=== PATIENT | female | born 1980 ===

== ENCOUNTER 2017-08-24 10:22 | Emergency (ER) | payer OTHER ==
[2017-08-24 10:33] VITALS: RESP 18; O2SAT 98
[2017-08-24] MEDS ORDERED: Albuterol-Ipratrop 3 mg / 0.5 (3 ml) UD INH STA (10:52)
--- NOTE | 2017-08-24 10:57 | C.PDOC ---
History Of Present Illness 37 y/o female, whose PMHx includes Asthma, presents to the ED for evaluation of cough, congestion, sore throat which began a few days ago. Patient had an episode of vomiting earlier today. Patient states she last used albuterol this morning. Mother presents with her son, who has similar symptoms and is also a patient in the ED. Patient denies fever, chills. Time Seen by Provider: 08/24/17 10:52 Chief Complaint (Nursing): Abdominal Pain History Per: Patient History/Exam Limitations: no limitations Onset/Duration Of Symptoms: Days Current Symptoms Are (Timing): Still Present Radiation Of Pain To:: None Quality Of Discomfort: "Pain" Associated Symptoms: Vomiting. denies: Fever, Chills Additional History Per: Patient Past Medical History Reviewed: Historical Data, Nursing Documentation, Vital Signs Vital Signs: Last Vital Signs Temp 99 F 08/24/17 12:18 Pulse 62 08/24/17 12:18 Resp 18 08/24/17 10:31 BP 135/82 08/24/17 12:18 Pulse Ox 98 08/24/17 12:22 - Medical History PMH: Asthma, Seizures Surgical History: No Surg Hx Family History: States: Unknown Family Hx - Social History Hx Alcohol Use: No Hx Substance Use: No - Immunization History Hx Tetanus Toxoid Vaccination: No Hx Influenza Vaccination: No Hx Pneumococcal Vaccination: No Review Of Systems Constitutional: Negative for: Fever, Chills ENT: Positive for: Nose Congestion, Throat Pain Respiratory: Positive for: Cough Gastrointestinal: Positive for: Vomiting Physical Exam - Physical Exam Appears: Non-toxic, No Acute Distress Skin: Normal Color, Warm, Dry Head: Atraumatic, Normacephalic Eye(s): bilateral: Normal Inspection Ear(s): Bilateral: Normal Nose: Normal, No Discharge Oral Mucosa: Moist Throat: Erythema, No Exudate Neck: Supple Chest: Symmetrical, No Deformity Cardiovascular: Rhythm Regular, No Murmur Respiratory: Decreased Breath Sounds (bilaterally ), No Rales, No Rhonchi, No Wheezing Gastrointestinal/Abdominal: Soft, No Tenderness, No Guarding, No Rebound Extremity: Normal ROM, Capillary Refill (less than 2 seconds ) Neurological/Psych: Oriented x3, Normal Speech Gait: Steady ED Course And Treatment O2 Sat by Pulse Oximetry: 98 (on RA) Pulse Ox Interpretation: Normal - Other Rad CXR X-Ray: Interpreted by Me, Viewed By Me, Read By Radiologist Interpretation: HISTORY: cough. COMPARISON: 03/26/2016. TECHNIQUE: Chest PA and lateral. FINDINGS: LUNGS: No active pulmonary disease. PLEURA: No significant pleural effusion identified. No pneumothorax apparent. CARDIOVASCULAR: Normal. OSSEOUS STRUCTURES: No significant abnormalities. VISUALIZED UPPER ABDOMEN: Normal. OTHER FINDINGS: None. IMPRESSION: No active disease. Medical Decision Making Medical Decision Making: Impression: 37y/o female with cough, congestion, vomiting, sore throat Plan: * labs * CXR * Albuterol INH * Prednisone PO * reassess and disposition Progress: labs and CXR ordered and reviewed. Patient received Albuterol INH and Prednisone PO. pt reassesed s/p neb. lungs clear. breathing improve.d symptoms improved. cxr neg. advise outpt f/u and return precautions. abd soft no ttp. pt speaking full sentences ambulatory steady gait. Disposition - Disposition Referrals: [facility] [Outside] [facility] [Outside] [facility] [Outside] Disposition: HOME/ ROUTINE Disposition Time: 12:00 Condition: STABLE Additional Instructions: follow up with your doctor. return to er with worsening symptoms or concerns. Prescriptions: Benzonatate [Tessalon Perles] 100 mg PO TID PRN #15 sgl PRN Reason: Cough Prednisone 50 mg PO DAILY #4 tablet Instructions: Asthma (ED), Viral Syndrome (ED) Forms: [employer] (Z[place]an) - Clinical Impression Clinical Impression: Asthma, Viral syndrome - Scribe Statement The provider has reviewed the documentation as recorded by the Scribe (Eve Pires) Provider Attestation: All medical record entries made by the Scribe were at my direction and personally dictated by me. I have reviewed the chart and agree that the record accurately reflects my personal performance of the history, physical exam, medical decision making, and the department course for this patient. I have also personally directed, reviewed, and agree with the discharge instructions and disposition.
[2017-08-24] MEDS ORDERED: Albuterol-Ipratrop 3 mg / 0.5 (3 ml) UD ONE (11:20)
--- NOTE | 2017-08-24 11:59 | RAD ---
HISTORY: cough COMPARISON: 03/26/2016 TECHNIQUE: Chest PA and lateral FINDINGS: LUNGS: No active pulmonary disease. PLEURA: No significant pleural effusion identified. No pneumothorax apparent. CARDIOVASCULAR: Normal. OSSEOUS STRUCTURES: No significant abnormalities. VISUALIZED UPPER ABDOMEN: Normal. OTHER FINDINGS: None. IMPRESSION: No active disease.
[2017-08-24 12:20] VITALS: BP 135/82; PULSE 62; TEMP 99
== END 2017-08-24 12:40 | disposition home or self-care (01) ==
LOC: C.ER 10:22
DX: J45.909 Unspecified asthma, uncomplicated (principal); B34.9 Viral infection, unspecified

== ENCOUNTER 2018-08-11 08:18 | Emergency (ER) | payer OTHER ==
[2018-08-11 08:32] VITALS: BP 101/67; PULSE 60; RESP 18; TEMP 98; O2SAT 99
--- NOTE | 2018-08-11 08:32 | C.PDOC ---
History Of Present Illness GEN HIVES, ITCH THIS MORNING. NO KNOWN CAUSE, SP BENADRYL BY EMS AND AT HOME, NOW IMPROVED. PS INITIALLY HIVES "WERE EVERYWHERE" NOW ONLY ON ARMS. +NAUSEA, NOW RESOLVED. NO SOB, SWELL. DENIES HO ASTHMA. ALSO CO PERSIST R LOWER BACK PAIN X 3 DAYS. RADIATION R BUTTOCK/LAT THIGH. SP EVAL BY PMD FOR SAME, PENDING OUTPT XRAY. ON NORCO EXAM NARD NONTOXIC HEENT NO ANGIOEDEMA STRIDOR LUNGS CTA B/L NO W/R/R SKIN +HIVES B/L UPPER ARMS EXT NO EDEMA BACK AROM WO DIFF NONTEND NEURO INTACT Time Seen by Provider: 08/11/18 08:29 Chief Complaint (Nursing): Allergic Reaction History Per: Patient History/Exam Limitations: no limitations Onset/Duration Of Symptoms: Hrs Current Symptoms Are (Timing): Still Present Past Medical History Reviewed: Historical Data, Nursing Documentation, Vital Signs Vital Signs: Last Vital Signs Temp 98 F 08/11/18 08:22 Pulse 60 08/11/18 08:22 Resp 18 08/11/18 08:22 BP 101/67 08/11/18 08:22 Pulse Ox 99 08/11/18 10:11 - Medical History PMH: Asthma, Seizures Other Surgeries: Hx of surgeries Family History: States: No Known Family Hx - Social History Hx Alcohol Use: No Hx Substance Use: No - Immunization History Hx Tetanus Toxoid Vaccination: No Hx Influenza Vaccination: No Hx Pneumococcal Vaccination: No Review Of Systems Except As Marked, All Systems Reviewed And Found Negative. Constitutional: Negative for: Fever, Chills Respiratory: Negative for: Shortness of Breath Gastrointestinal: Positive for: Nausea Musculoskeletal: Positive for: Back Pain (right lower back pain) Skin: Positive for: Other (hives,itching) Physical Exam - Physical Exam Appears: Non-toxic, Other (NARD) Skin: Normal Color, Warm, Dry, Other (+hives bilateral upper arms) Head: Atraumatic, Normacephalic, Other (no angioedema) Throat: Other (no stridor) Cardiovascular: Rhythm Regular Respiratory: Normal Breath Sounds, No Rales, No Rhonchi, No Wheezing Back: No Vertebral Tenderness, No Paraspinal Tenderness, Other (AROM without difficulty) Extremity: Normal ROM, Other (no edema) Neurological/Psych: Oriented x3, Normal Speech ED Course And Treatment O2 Sat by Pulse Oximetry: 99 (RA) Pulse Ox Interpretation: Normal Medical Decision Making Medical Decision Making: Plan: --Solu-Medrol IV --Toradol IV Disposition Counseled Patient/Family Regarding: Diagnosis, Need For Followup, Rx Given - Disposition Referrals: YOUR,PMD [Other] Disposition: HOME/ ROUTINE Disposition Time: 10:00 Condition: IMPROVED Prescriptions: Ibuprofen [Motrin] 600 mg PO Q6 #30 tab predniSONE [Prednisone] 60 mg PO DAILY #9 tab Instructions: Sciatica (DC), Hives (DC) Forms: [employer] (Malagasy), Work Excuse - Clinical Impression Clinical Impression: Urticaria, Sciatic leg pain - Scribe Statement The provider has reviewed the documentation as recorded by the Maganibe Yogi Espinoza Provider Attestation: All medical record entries made by the Scribe were at my direction and personally dictated by me. I have reviewed the chart and agree that the record accurately reflects my personal performance of the history, physical exam, medical decision making, and the department course for this patient. I have also personally directed, reviewed, and agree with the discharge instructions and disposition.
[2018-08-11] MEDS ORDERED: MethylPREDNISolone 40 mg Vial IVP STA (08:37)
[2018-08-11] MEDS ORDERED: MethylPREDNISolone 40 mg Vial ONE (09:17)
== END 2018-08-11 10:01 | disposition home or self-care (01) ==
LOC: C.ER 08:18
DX: L50.9 Urticaria, unspecified (principal); M54.31 Sciatica, right side; M79.604 Pain in right leg
CPT/HCPCS: 96374; 96375; 99284; J1885; J2920